=== PATIENT | female | born 1995 | race Two or more races ===

== ENCOUNTER 2018-04-28 05:15 | Day surgery (SDC) | payer OTHER ==
[~2018-04-28] VITALS: Ht 165.1 cm; Wt 118.8 kg
== END 2018-04-28 15:30 | disposition home or self-care, planned readmission (81) ==
LOC: ER 05:15 → CIR.AMB 11:52
DX: N85.00 Endometrial hyperplasia, unspecified (principal)

== ENCOUNTER 2019-05-06 20:47 | Emergency (ER) | payer OTHER ==
[~2019-05-06] VITALS: Ht 165.1 cm; Wt 126.1 kg
== END 2019-05-06 22:44 | disposition home or self-care (01) ==
LOC: ER 20:47
DX: N93.8 Other specified abnormal uterine and vaginal bleeding (principal)

== ENCOUNTER 2019-05-26 13:55 | Inpatient (IN) | payer OTHER ==
[~2019-05-26] VITALS: Ht 165.1 cm; Wt 127.9 kg
== END 2019-06-02 13:45 | disposition home or self-care (01) | DRG 745 ==
LOC: ER 13:55 → OB/GYN 05-27 09:43 → SEC-K 05-27 09:43 → OB/GYN 05-27 11:37
PROVIDERS: ADMIT Obstetrics & Gynecology
PROC: 30233N1 Transfusion of Nonautologous Red Blood Cells into Peripheral Vein, Percutaneous Approach (ICD-10-PCS; 2019-06-01)
PROC: 0UDB8ZZ Extraction of Endometrium, Via Natural or Artificial Opening Endoscopic (ICD-10-PCS; principal; 2019-06-01 11:45)
DX: N93.8 Other specified abnormal uterine and vaginal bleeding (principal); D50.0 Iron deficiency anemia secondary to blood loss (chronic)

== ENCOUNTER 2020-08-06 12:01 | Emergency (ER) | payer OTHER ==
[~2020-08-06] VITALS: Ht 165.1 cm; Wt 138.3 kg
== END 2020-08-07 19:54 | disposition home or self-care (01) ==
LOC: ER 12:01
DX: D50.0 Iron deficiency anemia secondary to blood loss (chronic) (principal); N93.8 Other specified abnormal uterine and vaginal bleeding; Z03.818 Encounter for observation for suspected exposure to other biological agents ruled out
CPT/HCPCS: 36430 ×3; 76830; 86904 ×3; 86922 ×3; P9016 ×3

== ENCOUNTER → 2021-03-15 | Emergency (ER) | payer OTHER ==
[~2021-03-15] VITALS: Ht 152.4 cm; Wt 5.0 kg
[~2021-03-15] MED LIST: LOW-OGESTREL-21 EACH PO; PROFERRIN-FORT1 EACH PO
== END | disposition left against medical advice (07) | DRG 812 ==
LOC: ER 10:47 → OBS/DEL 10:59 → ER 16:03 → SEC-K 16:03
PROC: BU4CZZZ Ultrasonography of Uterus and Ovaries (ICD-10-PCS; principal; 2021-03-15)
DX: D64.9 Anemia, unspecified (principal); N93.8 Other specified abnormal uterine and vaginal bleeding; Z20.822 Contact with and (suspected) exposure to COVID-19

== ENCOUNTER 2021-03-17 14:14 | Inpatient (IN) | payer OTHER ==
[~2021-03-17] VITALS: Ht 165.1 cm; Wt 142.9 kg
--- NOTE | 2021-03-17 14:33 | NUR ---
PTE DARI REFERIDO PARA ADMICION DEL GINECOLOGO POR [facility] Y ANEMIA.
--- NOTE | 2021-03-17 15:40 | NUR ---
. EDAL EDUCA A PTE SOBRE TX MEDICO ESTA REFIERE ENTENDER. SE RADHA MUESTRAS DE LABORATORIO UTILIZANDO MEDIDAS ASEPTICAS. SE COLOCA H/L EL CUAL S EENCUENTRA PATENTE Y KAYLA DE EDEMA. SE RADHA TUBOS PILOTOS A PTE PARA REQUIZAR 2 UNIDADES DE PRBC PARA TRANSFUNDIR. SE COLOCA MEDICAMENTOS A PTE LOS CUALES TOLERA. SE NOTIFICA ESTUDIO DE RX PENDIENTE A REALIZAR.
--- NOTE | 2021-03-17 15:59 | NUR ---
SE LLAMA A DE BANCO DE AMADO EL CUAL INDICA QUE PTE TIENE TONY UNIDAD DE PRBC PREPARADA Y LA MISMA SE ENCUENTRA DISPONIBLE. INDICA QUE TRABAJARA LA OTRA UNIDAD YA QUE LA REQUISISION DE LA UNIDAD ANTERIORMENTE REQUISADA SE ENCONTRABA VIGENTE.
[2021-03-18] MEDS ORDERED: LOW-OGESTREL-21 EACH PO (12:24)
[2021-03-18] MEDS ORDERED: PROFERRIN-FORT1 EACH PO (12:25)
== END 2021-03-18 13:04 | disposition home or self-care (01) | DRG 761 ==
LOC: ER 14:14 → SEC-K 16:44 → OB/GYN 16:44
PROVIDERS: ADMIT Obstetrics & Gynecology; ATTEND Obstetrics & Gynecology
PROC: 30233N1 Transfusion of Nonautologous Red Blood Cells into Peripheral Vein, Percutaneous Approach (ICD-10-PCS; principal; 2021-03-17)
DX: N93.8 Other specified abnormal uterine and vaginal bleeding (principal); D64.9 Anemia, unspecified

== ENCOUNTER 2021-10-31 17:37 | Emergency (ER) | payer OTHER ==
[~2021-10-31] VITALS: Ht 165.1 cm; Wt 128.8 kg
== END 2021-10-31 20:51 | disposition home or self-care (01) ==
LOC: ER 17:37
DX: D64.9 Anemia, unspecified (principal); R07.89 Other chest pain

== ENCOUNTER 2022-01-20 20:13 | Emergency (ER) | payer OTHER ==
[~2022-01-20] VITALS: Ht 165.1 cm; Wt 125.6 kg
[2022-01-20] MEDS ORDERED: IRON236 MG (20:21)
== END 2022-01-20 23:42 | disposition home or self-care (01) ==
LOC: ER 20:13
DX: R53.1 Weakness (principal); D64.89 Other specified anemias; N92.0 Excessive and frequent menstruation with regular cycle

== ENCOUNTER 2022-01-23 08:20 | Emergency (ER) | payer OTHER ==
[~2022-01-23] VITALS: Ht 165.1 cm; Wt 125.6 kg
[~2022-01-23 08:20] MED LIST changes: +IRON236 MG
== END 2022-01-23 12:35 | disposition home or self-care (01) ==
LOC: ER 08:20
DX: N92.0 Excessive and frequent menstruation with regular cycle (principal)

== ENCOUNTER 2022-02-12 08:16 | Emergency (ER) | payer OTHER ==
[~2022-02-12] VITALS: Ht 165.1 cm; Wt 123.8 kg
== END 2022-02-12 11:40 | disposition home or self-care (01) ==
LOC: ER 08:16
DX: R07.89 Other chest pain (principal)

== ENCOUNTER 2022-03-21 14:23 | Emergency (ER) | payer OTHER ==
[~2022-03-21] VITALS: Ht 165.1 cm; Wt 120.2 kg
[2022-03-21] MEDS ORDERED: ONDANSETRON ODT8 MG PO (18:21)
[2022-03-21] MEDS ORDERED: PEPCID AC20 MG PO (18:21)
== END 2022-03-21 19:06 | disposition home or self-care (01) ==
LOC: ER 14:23
DX: O21.0 Mild hyperemesis gravidarum (principal); O99.011 Anemia complicating pregnancy, first trimester; Z3A.08 8 weeks gestation of pregnancy

== ENCOUNTER 2022-08-19 23:27 | Emergency (ER) | payer OTHER ==
[~2022-08-19] VITALS: Ht 165.1 cm; Wt 121.6 kg
[~2022-08-19 23:27] MED LIST changes: +ONDANSETRON ODT8 MG PO; +PEPCID AC20 MG PO
[2022-08-19] MEDS ORDERED: PRENA1 TRUE CO1 EACH PO (23:43)
[2022-08-20] MEDS ORDERED: PEPCID40 MG PO (07:46)
[2022-08-20] MEDS ORDERED: CEPHALEXIN250 MG/5 M PO (07:46)
[2022-08-20] MEDS ORDERED: ONDANSETRON ODT4 MG PO (07:46)
== END 2022-08-20 08:41 ==
LOC: ER 23:27
DX: O23.43 Unspecified infection of urinary tract in pregnancy, third trimester (principal); N39.0 Urinary tract infection, site not specified; Z3A.30 30 weeks gestation of pregnancy; O21.9 Vomiting of pregnancy, unspecified; Z20.822 Contact with and (suspected) exposure to COVID-19

== ENCOUNTER 2024-05-17 11:53 | Inpatient (IN) | payer OTHER ==
[~2024-05-17] VITALS: Ht 165.1 cm; Wt 119.3 kg
[2024-05-17 11:11] VITALS: BP 101/70; O2SAT 98
[~2024-05-17 11:53] MED LIST changes: +CEPHALEXIN250 MG/5 M PO; +FOLIC ACID20 MG PO; +IRON325 MG PO; +ONDANSETRON ODT4 MG PO; +PEPCID40 MG PO; +PRENA1 TRUE CO1 EACH PO; +PRENATAL TABLE1 EAC1 PO
[2024-05-17] MEDS ORDERED: FAMOTIDINE/PF 20 MG/2 ML VIAL IV STA (13:05)
[2024-05-17] MEDS ORDERED: ACETAMINOPHEN500 M2 PO (13:07)
[2024-05-17] MEDS ORDERED: RINGERS SOLUTION,LACTATED 1,000 ML IV SCH (13:15)
[2024-05-17 13:33] LABS: HEMOGLOBIN 10.3 g/dL (12.0-15.00); MEAN CELL VOLUME 72.2 fL (80.00-100.00); MEAN CORPUSCULAR HEMOGLOBIN 24.7 pg (27.00-32.0); MEAN CORPUSCULAR HGB CONC 34.2 g/dl (32.0-36.0); PLATELET COUNT 195 K/uL (150-450); RED BLOOD COUNT 4.15 M/uL (4.00-6.00); RED CELL DISTRIBUTION WIDTH 15.3 % (11.5-14.5)
[2024-05-17 13:52] LABS: PROTHROMBIN TIME 10.9 SECONDS (9.0-11.5)
[2024-05-17 13:57] LABS: ALBUMIN 2.5 gm/dL (3.4-5.0); BILIRUBIN TOTAL 0.28 mg/dL (0.3-1.2); CALCIUM 8.6 mg/dL (8.5-10.1); CREATININE SERUM 0.55 mg/dL (0.55-1.02); GFR 132.59; GLOBULINA 4.4 G/DL (2.4-3.5); POTASSIUM 4.22 mEq/L (3.5-5.1); TOTAL PROTEIN 6.9 gm/dL (6.4-8.2)
[2024-05-17] MEDS ORDERED: AZITHROMYCIN 500 MG in DEXTROSE 5 % IN WATER 250 ML IV SCH (14:15)
[2024-05-17] MEDS ORDERED: AZITHROMYCIN 500 MG VIAL IV ONE (14:41)
[2024-05-17 15:41] VITALS: BP 110/74; O2SAT 100
[2024-05-17 18:39] LABS: PH,URINE 6.5 (5.0-8.0); URINE APPEARANCE Clear; URINE BILIRRUBIN Negative (NEGATIVE); URINE BLOOD Negative; URINE COLOR Yellow; URINE GLUCOSE Negative (NEGATIVE); URINE LEUKOCYTE Moderate; URINE NITRATE Negative; URINE PROTEIN Negative (NEGATIVE); URINE UROBILINOGEN 0.2 E.U./dl
[2024-05-17 18:43] LABS: URINE BACTERIA 2865.2 uL (0.0-1933); URINE EPITHELIAL CELLS 51.1 uL (0.0-38.8); URINE RBC 3.6 uL (0.0-20.8); URINE WBC 109.7 uL (0.0-23.2)
[2024-05-17 18:45] LABS: URINE KETONE >=160 (NEGATIVE)
[2024-05-17 19:55] VITALS: BP 90/58; O2SAT 97
[2024-05-17] MEDS ORDERED: FAMOTIDINE/PF 20 MG/2 ML VIAL IV SCH (21:00)
[2024-05-17 23:57] VITALS: BP 91/62; O2SAT 99
[2024-05-18 03:23] VITALS: BP 105/69
[2024-05-18 12:51] VITALS: BP 106/70
[2024-05-18 17:47] VITALS: BP 123/60
[2024-05-19] VITALS: BP 106/69
[2024-05-19 08:00] VITALS: BP 106/62
[2024-05-19] MEDS ORDERED: ZITHROMAX500 MG PO (09:08)
== END 2024-05-19 11:54 | disposition home or self-care (01) | DRG 831 ==
LOC: OB/GYN 11:53 → LDR 11:53 → OB/GYN 05-18 11:26 → LDR 05-18 11:30 → OB/GYN 05-18 11:41
PROVIDERS: ADMIT Obstetrics & Gynecology; ATTEND Obstetrics & Gynecology
PROC: 4A1HXCZ Monitoring of Products of Conception, Cardiac Rate, External Approach (ICD-10-PCS; principal; 2024-05-17)
DX: O99.513 Diseases of the respiratory system complicating pregnancy, third trimester (principal); J15.7 Pneumonia due to Mycoplasma pneumoniae; Z3A.35 35 weeks gestation of pregnancy; Z20.822 Contact with and (suspected) exposure to COVID-19